=== PATIENT | female | born 1945 | race African-American/Black ===

== ENCOUNTER 2016-08-09 08:36 | Emergency (ER) | payer MEDICARE, OTHER ==
[~2016-08-09] VITALS: Ht 170.2 cm; Wt 72.6 kg
[2016-08-09 08:45] VITALS: BP 144/81
[2016-08-09] MEDS ORDERED: IBUPROFEN 600 MG TABLET PO ONE ×2 (09:00→09:20)
[2016-08-09] MEDS ORDERED: HYDROCODONE/APAP 5/325MG 1 EACH TABLET ONE (10:20)
[2016-08-09] MEDS ORDERED: HYDROCODONE/APAP 5/325MG 1 EACH TABLET PO ONE (10:30)
== END 2016-08-09 10:28 | disposition home or self-care (01) ==
LOC: ER 08:37
DX: S90.112A Contusion of left great toe without damage to nail, initial encounter (principal); F41.9 Anxiety disorder, unspecified; I10 Essential (primary) hypertension; F17.200 Nicotine dependence, unspecified, uncomplicated; R26.2 Difficulty in walking, not elsewhere classified; W20.8XXA Other cause of strike by thrown, projected or falling object, initial encounter; Y93.89 Activity, other specified; Y92.89 Other specified places as the place of occurrence of the external cause; Y99.9 Unspecified external cause status
CPT/HCPCS: 73660; 99284; A4606; Z7610

== ENCOUNTER 2017-03-28 15:37 | Emergency (ER) | payer MEDICARE, OTHER ==
[~2017-03-28] VITALS: Ht 160 cm; Wt 59.0 kg
[2017-03-28 16:07] VITALS: BP 164/87
--- NOTE | 2017-03-28 17:51 | NUR ---
U/S TECH AT BEDSIDE FOR RUE DUPLEX ULTRASOUND.
== END 2017-03-28 18:58 | disposition home or self-care (01) ==
LOC: ER 15:40
DX: I80.9 Phlebitis and thrombophlebitis of unspecified site (principal); I10 Essential (primary) hypertension; Z86.73 Personal history of transient ischemic attack (TIA), and cerebral infarction without residual deficits
CPT/HCPCS: 93971-TC; A4606; Z7610

== ENCOUNTER 2017-06-28 05:52 | Emergency (ER) | payer MEDICARE, OTHER ==
[~2017-06-28] VITALS: Ht 160 cm; Wt 58.5 kg
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
--- NOTE | 2017-06-28 06:20 | NUR ---
started on the left wrist g18, blood drawn and sent to lab.
[2017-06-28 06:24] LABS: BASOPHILS % (AUTO) 0.4 % (0.0-2.0); HEMATOCRIT 35 % (33-45); HEMOGLOBIN 11.6 g/dL (11.5-14.8); LYMPHOCYTES # (AUTO) 1.3 /CMM (0.8-4.8); LYMPHOCYTES % (AUTO) 26.6 % (20.0-44.0); MEAN CORPUSCULAR HEMOGLOBIN 30 PG (26.0-33.0); MEAN CORPUSCULAR HGB CONC 34 g/dl (31.0-36.0); MEAN CORPUSCULAR VOLUME 90 fL (82-100); MONOCYTES # (AUTO) 0.4 /CMM (0.1-1.30); MONOCYTES % (AUTO) 9.1 % (2.0-12.0); NEUTROPHILS # (AUTO) 3.2 /CMM (1.8-8.9); NEUTROPHILS % (AUTO) 62.9 % (43.0-81.0); PLATELET COUNT (AUTO) 455 /CMM (150-450); RDW COEFFICIENT OF VARIATION 13.7 (11.5-15.0); RED BLOOD CELL COUNT(AUTO) 3.85 MIL/uL (4.0-5.2); WHITE BLOOD COUNT (AUTO) 4.9 K/uL (4.3-11.0)
[2017-06-28 06:43] LABS: CALCIUM, SERUM 9.6 mg/dL (8.5-10.1); CARBON DIOXIDE 24 mmol/L (21-32); CHLORIDE 100 mmol/L (98-107); CREATININE 1.3 mg/dL (0.6-1.3); GLUCOSE 140 mg/dL (74-106); POTASSIUM 3.7 mmol/L (3.5-5.1); SODIUM SERUM 137 mmol/L (136-145); UREA NITROGEN, BLOOD 17 mg/dL (7-18)
[2017-06-28 06:45] LABS: INR 0.9 (0.87-1.13); PROTHROMBIN TIME 9.3 SECS (9.5-12.7)
[2017-06-28 07:04] LABS: TROPONIN I < 0.017 ng/mL (0.00-0.056)
--- NOTE | 2017-06-28 07:27 | NUR ---
REPORT GIVEN TO RAMU PACKER FOR DIANNA.
--- NOTE | 2017-06-28 07:48 | NUR ---
PT ON BED, AWAKE, VSS
[2017-06-28 08:52] VITALS: BP 130/80
--- NOTE | 2017-06-28 08:52 | NUR ---
Patient does not wish to proceed with medical care recommended by . Patient given information related to possible complications, up to and including , which could occur as a result of leaving the hospital at this time. Patient verbalizes understanding of risks involved due to leaving against medical advice. Patient has signed AMA form.
== END 2017-06-28 08:56 | disposition left against medical advice (07) ==
LOC: ER 05:54
DX: M54.9 Dorsalgia, unspecified (principal); G89.29 Other chronic pain; F41.9 Anxiety disorder, unspecified; R07.9 Chest pain, unspecified; I10 Essential (primary) hypertension; F17.200 Nicotine dependence, unspecified, uncomplicated; Z86.73 Personal history of transient ischemic attack (TIA), and cerebral infarction without residual deficits; Z88.6 Allergy status to analgesic agent; Z88.8 Allergy status to other drugs, medicaments and biological substances
CPT/HCPCS: 36415; 71045; 80048; 84484; 85025; 85730; 87081; 93005; 99285; A4606; Z7610

== ENCOUNTER 2019-04-19 20:48 | Emergency (ER) | payer MEDICARE, MEDICAID ==
[~2019-04-19] VITALS: Ht 160 cm; Wt 49.9 kg
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
--- NOTE | 2019-04-19 21:19 | NUR ---
TECH AT BEDSIDE FOR EKG
--- NOTE | 2019-04-19 21:31 | NUR ---
BLOOD DRAWN AND GIVEN TO LAB
[2019-04-19 21:34] LABS: BASOPHILS % (AUTO) 0.3 % (0.0-2.0); EOSINOPHILS % (AUTO) 2.7 % (0.0-6.0); HEMATOCRIT 39 % (33-45); LYMPHOCYTES # (AUTO) 1.3 /CMM (0.8-4.8); LYMPHOCYTES % (AUTO) 24.1 % (20.0-44.0); MEAN CORPUSCULAR HGB CONC 34 g/dl (31.0-36.0); MEAN CORPUSCULAR VOLUME 95 fL (82-100); MONOCYTES # (AUTO) 0.5 /CMM (0.1-1.30); MONOCYTES % (AUTO) 9.1 % (2.0-12.0); NEUTROPHILS # (AUTO) 3.5 /CMM (1.8-8.9); NEUTROPHILS % (AUTO) 63.8 % (43.0-81.0); PLATELET COUNT (AUTO) 326 /CMM (150-450); RED BLOOD CELL COUNT(AUTO) 4.06 MIL/uL (4.0-5.2); WHITE BLOOD COUNT (AUTO) 5.5 K/uL (4.3-11.0)
--- NOTE | 2019-04-19 21:36 | NUR ---
PT TAKEN TO RADIOLOGY VIA [facility]
[2019-04-19 21:42] LABS: CALCIUM, SERUM 9.5 mg/dL (8.5-10.1); CREATININE 1.1 mg/dL (0.6-1.3); POTASSIUM 4.1 mmol/L (3.5-5.1)
--- NOTE | 2019-04-19 21:46 | NUR ---
PT RETURNED FROM RADIOLOGY VIA [facility]. PT TOLERATED WELL.
--- NOTE | 2019-04-19 22:03 | NUR ---
PT AMBULATORY WITH ASSISTANCE TO RESTROOM. UNABLE TO PROVIDE URINE AT THIS TIME.
--- NOTE | 2019-04-19 22:22 | NUR ---
Patient is resting comfortably in bed. PT DENIES PAIN AT THIS TIME. VSS.
--- NOTE | 2019-04-19 22:33 | NUR ---
SPOKE TO QUEENIE FROM [facility] TO FAX INFO TO [phone]
--- NOTE | 2019-04-19 23:09 | NUR ---
[facility] ROOM 4415-1. NUMBER FOR REPORT [phone] EXT [phone]. CALL BACK FOR ETA AT [phone]
--- NOTE | 2019-04-19 23:20 | NUR ---
REPORT GIVEN TO BIRDIE ANDRADE AT [facility] FOR DIANNA
--- NOTE | 2019-04-19 23:27 | NUR ---
CALLED [facility] ETA 60 MIN. TRIP # [phone]
--- NOTE | 2019-04-19 23:45 | NUR ---
SPOKE TO CM AND INFORMED HER OF TRANSPORT INFORMATION
[2019-04-20 00:11] VITALS: BP 139/70
== END 2019-04-20 01:39 | disposition short-term general hospital (02) ==
LOC: ER 20:52
DX: S06.890A Other specified intracranial injury without loss of consciousness, initial encounter (principal); I10 Essential (primary) hypertension; F41.9 Anxiety disorder, unspecified; F31.9 Bipolar disorder, unspecified; F17.200 Nicotine dependence, unspecified, uncomplicated; Z88.6 Allergy status to analgesic agent; Z88.8 Allergy status to other drugs, medicaments and biological substances; Z60.2 Problems related to living alone; V49.49XA Driver injured in collision with other motor vehicles in traffic accident, initial encounter; Y93.89 Activity, other specified; Y92.413 State road as the place of occurrence of the external cause; Y99.8 Other external cause status
CPT/HCPCS: 36415; 70450-TC; 80048-TC; 82962-TC; 85025-TC; G0480

== ENCOUNTER 2019-10-10 15:47 | Emergency (ER) | payer MEDICARE, OTHER ==
[~2019-10-10] VITALS: Ht 160 cm; Wt 54.9 kg
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
[2019-10-10] MEDS ORDERED: OXYC-454 PO (16:19)
[2019-10-10] MEDS ORDERED: SUVO20TA PO (16:19)
[2019-10-10] MEDS ORDERED: CLON0.1T PO (16:19)
[2019-10-10] MEDS ORDERED: ALPR2TAB7 PO (16:19)
[2019-10-10] MEDS ORDERED: QUET300T72 PO (16:19)
[2019-10-10] MEDS ORDERED: NIFE90TA38 PO (16:19)
[2019-10-10] MEDS ORDERED: PANT40TA4 PO (16:19)
[2019-10-10] MEDS ORDERED: LEVE500T20 PO (16:19)
[2019-10-10] MEDS ORDERED: NALOXONE HCL 0.4 MG/ML AMPUL ONE (16:27)
[2019-10-10] MEDS ORDERED: NALOXONE HCL 0.4 MG/ML AMPUL IV ONE (16:30)
--- NOTE | 2019-10-10 16:30 | NUR ---
wheeled patient via [facility] for ct
[2019-10-10 16:36] LABS: BASOPHILS % (AUTO) 0.3 % (0.0-2.0); EOSINOPHILS % (AUTO) 5.1 % (0.0-6.0); HEMATOCRIT 34 % (33-45); HEMOGLOBIN 11.2 g/dL (11.5-14.8); LYMPHOCYTES # (AUTO) 1.1 /CMM (0.8-4.8); LYMPHOCYTES % (AUTO) 30.9 % (20.0-44.0); MEAN CORPUSCULAR HGB CONC 33 g/dl (31.0-36.0); MEAN CORPUSCULAR VOLUME 92 fL (82-100); MONOCYTES # (AUTO) 0.5 /CMM (0.1-1.30); NEUTROPHILS # (AUTO) 1.7 /CMM (1.8-8.9); NEUTROPHILS % (AUTO) 48.7 % (43.0-81.0); PLATELET COUNT (AUTO) 372 /CMM (150-450); RED BLOOD CELL COUNT(AUTO) 3.65 MIL/uL (4.0-5.2); WHITE BLOOD COUNT (AUTO) 3.5 K/uL (4.3-11.0)
[2019-10-10 16:37] LABS: APPEARANCE,URINE Clear (CLEAR); BILIRUBIN,URINE Negative (NEGATIVE); BLOOD, URINE Negative Ery/uL (NEGATIVE); COLOR,URINE Yellow (YELLOW); KETONES,URINE Negative (NEGATIVE); LEUKOCYTE ESTERASE ,URINE Negative (NEGATIVE); NITRITE, URINE Negative (NEGATIVE); PROTEIN,URINE 30 mg/dl (NEGATIVE); UGLUCOSE Negative (NEGATIVE); UROBILINOGEN,URINE 0.2 EU/dL (0.2)
--- NOTE | 2019-10-10 16:40 | NUR ---
patient came back from CT
[2019-10-10 16:45] LABS: CALCIUM, SERUM 8.7 mg/dL (8.5-10.1); CARBON DIOXIDE 24 mmol/L (21-32); CHLORIDE 102 mmol/L (98-107); CREATININE 1.2 mg/dL (0.6-1.3); GLUCOSE 146 mg/dL (74-106); POTASSIUM 3.4 mmol/L (3.5-5.1); SODIUM SERUM 139 mmol/L (136-145); UREA NITROGEN, BLOOD 23 mg/dL (7-18)
--- NOTE | 2019-10-10 16:45 | NUR ---
Narcan given IVP left wrist G20 and responded slowly, patient started screaming MD notified and made aware.
[2019-10-10 16:51] LABS: BACTERIA,URINE Few /HPF (None Seen); RBC,URINE 0-2 /HPF (0-2); SQUAMOUS EPITHELIAL CELL,UR Few /HPF (None Seen); WBC,URINE 0-2 /HPF (0-3)
[2019-10-10 17:05] LABS: CREATINE KINASE, TOTAL 104 U/L (26-192); THYROID STIMULATING HORMONE 0.508 uIU/mL (0.358-3.74)
[2019-10-10 17:07] LABS: ALANINE AMINOTRANSFERASE 16 U/L (12-78); ALKALINE PHOSPHATASE 74 U/L (46-116); ASPARTATE AMINOTRANSFERASE 18 U/L (15-37); BILIRUBIN,DIRECT 0.1 mg/dL (0.0-0.2); BILIRUBIN,TOTAL 0.2 mg/dL (0.2-1.0); SALICYLATE 3.4 mg/dL (2.8-20.0); TOTAL PROTEIN, SERUM 7.2 g/dL (6.4-8.2)
[2019-10-10 17:08] LABS: ACETAMINOPHEN 0 ug/ml (10-30); ALCOHOL, BLOOD 0 mg/dL (0-0)
--- NOTE | 2019-10-10 17:55 | NUR ---
ice chips given to patient as ordered by MD and able to tolerate well
[2019-10-10 18:35] VITALS: BP 125/71
--- NOTE | 2019-10-10 19:00 | NUR ---
TRANSFER INFO: [facility] ROOM 1436-2 RN FOR REPORT:[phone] EXT [phone] ACCEPTING [facility] ETA [phone]
--- NOTE | 2019-10-10 19:18 | NUR ---
[facility]
--- NOTE | 2019-10-10 19:23 | NUR ---
patient picked up by private ambulance going to [facility] in no distress.
== END 2019-10-10 19:23 | disposition short-term general hospital (02) ==
LOC: ER 15:51
DX: D49.6 Neoplasm of unspecified behavior of brain (principal); E87.6 Hypokalemia; D64.9 Anemia, unspecified; T39.1X1A Poisoning by 4-Aminophenol derivatives, accidental (unintentional), initial encounter; T42.4X1A Poisoning by benzodiazepines, accidental (unintentional), initial encounter; Y92.89 Other specified places as the place of occurrence of the external cause; G89.29 Other chronic pain; F41.9 Anxiety disorder, unspecified; I10 Essential (primary) hypertension; Z98.890 Other specified postprocedural states; Z88.6 Allergy status to analgesic agent; Z88.8 Allergy status to other drugs, medicaments and biological substances; F17.200 Nicotine dependence, unspecified, uncomplicated; Z60.2 Problems related to living alone
CPT/HCPCS: 36415; 70450; 71045; 80048; 80076; 80305; 80307; 80329; 81001; 82550; 82962; 83605; 84145; 84439; 84443; 84484; 85025; 85730; 87040 ×2; 87086; 93005; 96374; 99291; G0480; J2310; 81000-TC